=== PATIENT | female | born 2005 | race Caucasian/White ===

== ENCOUNTER 2025-08-06 13:23 | Outpatient (CLI) | payer BC, SELFPAY ==
--- NOTE | ~2025-08-06 | XR_ITS ---
EXAMINATION: XR thoracic spine 2V, XR lumbar spine 2-3V DATE: 08/06/2025 13:47 INDICATION: Upper back pain. No back pain. No mention of trauma. TECHNIQUE: AP, lateral view and swimmer's lateral view of thoracic spine were obtained. AP lateral and spot views of the lumbosacral spine. COMPARISON: None. FINDINGS: 12 thoracic segments are noted with rudimentary 12th ribs. No acute bony lesions are thoracic vertebrae. Vertebral soft tissues are normal. 5 lumbar segments are noted. Alignment of lumbar vertebrae are normal. No significant scoliosis of thoracolumbar spine. IMPRESSION: 1. No plain radiographic abnormalities of the thoracic and lumbosacral spine are seen. If symptoms are severe and persistent further imaging may be considered with MRI. Reviewed, dictated and finalized at location T. [facility] IMPRESSION: 1. No plain radiographic abnormalities of the thoracic and lumbosacral spine ar e seen. If symptoms are severe and persistent further imaging may be considered with MRI.
--- NOTE | ~2025-08-06 | XR_ITS ---
EXAMINATION: C-spine 4 views DATE: 08/06/2025 INDICATION: Neck pain. Back pain. Pain both shoulders. No mention of trauma. TECHNIQUE: AP, open mouth view, lateral view of C-spine were obtained. COMPARISON: None. FINDINGS: No focal bone changes are cervical vertebrae. Disc spaces are normal. Reversal of cervical lordosis suggest paravertebral muscle spasm. IMPRESSION: 1. No plain radiographic abnormalities of C-spine other than loss of cervical lordosis as mentioned above. Reviewed, dictated and finalized at location [facility] [place] [facility] IMPRESSION: 1. No plain radiographic abnormalities of C-spine other than loss of cervical l ordosis as mentioned above.
[2025-08-06 19:20] LABS: Hematocrit 41.1 % (37.0-47.0); Hemoglobin 13.5 g/dL (12.0-15.0); Immature Granulocyte Percent A 0.3 % (0-0.5); Lymphocytes Absolute Auto 1.72 K/mm3 (0.9-3.2); Mean Corpuscular HGB Conc 32.8 g/dl (32-36); Mean Corpuscular Hemoglobin 32.4 pg (26-34); Mean Corpuscular Volume 98.6 fl (80-100); Nucleated Red Blood Cells Absolute Auto 0.000 K/mm3 (0.0-0.012); Nucleated Red Blood Cells Perc 0.0 % (0.0-0.2); Platelet Count Result 304 k/mm3 (150-375); Red Blood Count 4.17 M/mm3 (4.2-5.4); White Blood Count 7.9 K/mm3 (4.5-10.0)
[2025-08-06 19:37] LABS: Alanine Aminotransferase 20 U/L (6-35); Albumin Level 4.6 g/dL (3.5-5.1); Alkaline Phosphatase 74 U/L (38-126); Anion Gap 7 mmol/L (4-12); Aspartate Amino Transferase 48 U/L (14-36); Bilirubin,Total 0.8 mg/dL (0.2-1.3); Blood Urea Nitrogen 12 mg/dL (7-17); Calcium 9.1 mg/dL (8.4-10.2); Carbon Dioxide 29 mmol/L (22-30); Chloride 103 mmol/L (98-107); Estimated Glomerular Filt Rate > 60; Glucose 81 mg/dL (65-110); Potassium 3.9 mmol/L (3.4-5.0); Sodium 139 mmol/L (137-145); Total Protein 8.0 g/dL (6.3-8.2)
[2025-08-06 19:40] LABS: Free T4 Free Thyroxine 0.99 ng/dL (0.78-2.19)
[2025-08-06 20:12] LABS: Thyroid Stimulating Hormone 0.372 uIU/mL (0.465-4.680)
[2025-08-06 20:32] LABS: Vitamin B12 414.0 pg/mL (239-931)
== END 2025-08-06 13:24 | disposition home or self-care (01) ==
LOC: ANHBWCLAB 13:24
PROVIDERS: PCP Nurse Practitioner Adult Health; Visit Provider Nurse Practitioner Adult Health
DX: M54.2 Cervicalgia (principal); R53.83 Other fatigue
CPT/HCPCS: 36415; 72040; 72070; 72100; 80053; 82306; 82607; 84439; 84443; 85025; 85652

== ENCOUNTER 2025-08-11 12:37 | Outpatient (CLI) | payer BC, SELFPAY ==
--- OUTSIDE RECORDS SUMMARY | 2025-08-11 14:04 | XMS_ITS | Clinical Summary ---
Author Organization [facility] [address] Address [address] [place] [id number] Care Team Providers Care Site Damage Prevention Technician Name Role Phone Unknown, Notinfile Primary Care Provider Unavail able Allergies No known active allergies Medications No known medications Active Problems No known active problems Social History Tobacco Use Types Packs/Day Years Used Date Smoking Tobacco: Never Assessed Comments Unknown Sex and Gender Information Value Date Recorded Sex Assigned at Not on file Legal Sex Female 9:34 AM CDT Gender Identity Not on file Sexual Orientation Not on file Last Filed Vital Signs Vital Sign Reading Time Taken Comments Blood Pressure 119/78 02/05/2025 9:47 AM CDT Pulse 62 02/05/2025 9:47 AM CDT Temperature 36.4 C (97.6 F) 02/05/2025 9:47 AM CDT Respiratory Rate 18 02/05/2025 9:47 AM CDT Oxygen Saturation 99% 02/05/2025 9:47 AM CDT Inhaled Oxygen Concentration - - Weight 54.4 kg (119 lb 14.4 oz) 02/05/2025 9:47 AM CDT Height 157.5 cm (5' 2) 02/05/2025 9:47 AM CDT Body Mass Index 21.93 02/05/2025 9:47 AM CDT Plan of Treatment Health Maintenance Due Date Last Done Comments Cervical Cancer Screening 2003 Depression Screening 2003 Hepatitis C Screening 2003 Meningococcal B Vaccine (1 o f 2 - Standard) 2019 HPV Vaccines (3 - 3-dose series) 02/16/2021 10/15/19 21, 08/18/2020 Regular Well Visit/Exam 18-64 2021 DTaP/Tdap/Td Vaccine (7 - Td or Tdap) 04/08/2025 04/08/2015, 04/26/2009, 05/16/2005, Additional history exists Influenza Vaccine (#1) 2025 08/18/2020 Hepatitis B Screening Completed 11/01/2004 , 02/24/2004, 2003, Additional history exists Pneumococcal vaccine <65 Completed 005, 04/28/2004, 02/24/2004, Additional history exists Varicella Vaccines Completed 04/26/2009, 05/16/2005 Meningococcal Vaccine Completed 07/12/2021, [address] [place] [id number] CHOICE [place] Care Teams Site Damage Prevention Technician Relationship Specialty Start Date End Date Unknown, Notinfile PCP - General 02/05/25
== END 2025-08-11 12:38 | disposition home or self-care (01) ==
LOC: ANHBWCLAB 12:40
PROVIDERS: PCP Nurse Practitioner Adult Health; Visit Provider Nurse Practitioner Adult Health
DX: R79.89 Other specified abnormal findings of blood chemistry (principal)
CPT/HCPCS: 86376